=== PATIENT | male | born 1960 | race Caucasian/White ===

== ENCOUNTER 2019-09-11 06:47 | Inpatient (IN) ==
[2019-09-11] MEDS ORDERED: Ethanol\\Acetic Acid\\Na Ace\\Ben 1,000 ML IRRIG.SOLN IR ONE (07:23)
[2019-09-11] MEDS ORDERED: Ondansetron 4 MG/2 ML VIAL IVP ONE (07:35)
[2019-09-11] MEDS ORDERED: *HR* Promethazine 25 MG/ML VIAL IVP PRN (07:35)
[2019-09-11] MEDS ORDERED: Scopolamine Patch 1.5 MG PATCH.TD72 TD ONE (07:35)
[2019-09-11] MEDS ORDERED: *HR* OxyCODONE Immed Rel 5 MG TABLET PO PRN (07:36)
[2019-09-11] MEDS ORDERED: *HR* HYDROmorphone (PF) 1 MG/ML SYRINGE IVP PRN (07:36)
[2019-09-11] MEDS ORDERED: Albuterol 2.5 MG/3 ML NEBULIZER IH ONE (07:39)
[2019-09-11] MEDS ORDERED: CeFAZolin Syr 3,000MG/30 ML 3,000 MG/30 ML SYRINGE IVPB ONE (07:39)
[2019-09-11] MEDS ORDERED: Ringers Solution, Lactated 1,000 ML IVC SCH ×2 (07:45→11:45)
[2019-09-11] MEDS ORDERED: *HR* Midazolam HCl 5 MG/5 ML VIAL IVP ONE ×2 (07:51→07:57)
[2019-09-11] MEDS ORDERED: *HR* Propofol 200 MG/20 ML VIAL IVP ONE (07:57)
[2019-09-11] MEDS ORDERED: *HR* Succinylcholine 200 MG/10 ML VIAL IVP ONE (07:57)
[2019-09-11] MEDS ORDERED: Lidocaine -MPF 2% 2 ML VIAL ONE (07:57)
[2019-09-11] MEDS ORDERED: Lidocaine HCL 4 ML Topical Solution (Laryng-O-Jet Kit Sterile Pak) TP ONE (07:59)
[2019-09-11] MEDS ORDERED: Ropivacaine/PF 0.5% 30 ML VIAL ONE (08:01)
[2019-09-11] MEDS ORDERED: Acetaminophen IV 1,000 MG/100 ML INFUS..BTL ONE (08:01)
[2019-09-11] MEDS ORDERED: *HR* Rocuronium Bromide 50 MG/5 ML VIAL ONE (09:42)
[2019-09-11] MEDS ORDERED: Dexamethasone 4 MG/ML VIAL ONE (09:53)
[2019-09-11] MEDS ORDERED: Ondansetron 4 MG/2 ML VIAL ONE (09:53)
[2019-09-11] MEDS ORDERED: EPHEDrine 50 MG/ML VIAL ONE (10:00)
[2019-09-11] MEDS ORDERED: *HR* PHENYLEPHRINE 1,000 MCG/10 ML SYRINGE IVP ONE (10:05)
[2019-09-11] MEDS ORDERED: Tranexamic Acid 1,000 MG/10 ML VIAL ONE (10:07)
[2019-09-11] MEDS ORDERED: Ondansetron 4 MG/2 ML VIAL IVP PRN (11:36)
[2019-09-11] MEDS ORDERED: Ketorolac 15 MG/ML VIAL IVP PRN (11:36)
[2019-09-11] MEDS ORDERED: *HR* OxyCODONE/APAP 5/325 TABLET PO PRN (11:36)
[2019-09-11] MEDS ORDERED: Temazepam 15 MG CAPSULE PO PRN (11:36)
[2019-09-11] MEDS ORDERED: Sennosides 8.6 MG TABLET PO PRN (11:36)
[2019-09-11] MEDS ORDERED: MOM Conc 10 ML UD.LIQ PO PRN (11:36)
[2019-09-11] MEDS: ceFAZolin sodium 3,000 MG in 0.9 % Sodium Chloride 100 ML IVPB SCH (17:18)
[2019-09-11] MEDS: LINAGLIPTIN PO SCH (22:43)
[2019-09-11] MEDS: METFORMIN HCL PO SCH (22:43)
[2019-09-12] MEDS: ceFAZolin sodium 3,000 MG in 0.9 % Sodium Chloride 100 ML IVPB SCH (00:10)
[2019-09-12 02:17] LABS: Hematocrit 37.6 % (37.5-50.1); Hemoglobin 12.6 g/dL (12.9-16.9)
[2019-09-12 02:34] LABS: BUN/Creatinine Ratio 21 (6-26); Blood Urea Nitrogen 18 mg/dL (8-23); Calcium 8.8 mg/dL (8.6-10.3); Carbon Dioxide 24 mEq/L (23-29); Chloride 104 mEq/L (98-107); Glucose 232 mg/dL (70-105); Osmolality,Calculated 295 (280-300); Sodium 138 mEq/L (136-145); eGFR For African Americans > 60 (> 60); eGFR For Non-African Americans > 60 (> 60)
[2019-09-12 08:02] VITALS: BP 126/74
[2019-09-12] MEDS: METFORMIN HCL PO SCH (08:18)
[2019-09-12] MEDS: LINAGLIPTIN PO SCH (08:18)
[2019-09-12] MEDS ORDERED: Cholecalciferol (D-3) 1,000 UNIT (25MCG) TABLET PO SCH (09:00)
[2019-09-12] MEDS ORDERED: Cyanocobalamin (B-12) 1,000 MCG TABLET PO SCH (09:00)
[2019-09-12] MEDS ORDERED: Vitamin E 200 UNIT (90MG) CAPSULE PO SCH (09:00)
[2019-09-12] MEDS ORDERED: amLODIPine 5 MG TABLET PO SCH (09:00)
[2019-09-12] MEDS ORDERED: Aspirin 81 MG TAB.CHEW PO SCH (09:00)
[2019-09-12] MEDS ORDERED: NON-FORMULARY MEDICATION 1 EACH EACH (Omega-3/Dha/Epa/Fish Oil [Fish Oil 1,000 Mg Softgel] PO SCH (09:00)
[2019-09-12] MEDS ORDERED: (Dapagliflozin Propanediol [Farxiga] 5 MG) PO SCH (09:00)
[2019-09-12] MEDS ORDERED: *HR* Glimepiride 4 MG TABLET PO SCH (09:00)
[2019-09-12] MEDS ORDERED: Fenofibrate 54 MG TABLET PO SCH (09:00)
[2019-09-12] MEDS ORDERED: hydroCHLOROthiazide 25 MG TABLET PO SCH (09:00)
[2019-09-12] MEDS ORDERED: *HR* Enoxaparin 30 MG/0.3 ML SYRINGE SQ SCH (11:37)
[2019-09-15] MEDS ORDERED: (Dulaglutide [Trulicity] 1.5 MG) SQ SCH (16:17)
== END 2019-09-12 12:17 | disposition home or self-care (01) | DRG 483 ==
LOC: SAMDAY 06:47 → 3NENU 12:24
PROVIDERS: ADMIT Orthopaedic Surgery Sports Medicine; ATTEND Orthopaedic Surgery Sports Medicine

== ENCOUNTER 2019-12-29 14:42 | Observation (INO) ==
[2019-12-29] MEDS: DilTIAZem 50 MG in 0.9 % Sodium Chloride 40 ML IVC SCH ×2 (15:21→19:54)
[2019-12-29 15:23] LABS: Basophils # 0.1 K/mcL (0.0-0.2); Basophils % 0.6 %; Eosinophils # 0.1 K/mcL (0.0-0.6); Eosinophils % 1.2 %; Hematocrit 46.4 % (37.5-50.1); Hemoglobin 14.7 g/dL (12.9-16.9); Immature Granulocytes % 0.4 % (0-4); Lymphocytes # 3.8 K/mcL (0.6-4.6); Lymphocytes % 36.9 %; Mean Corpuscular HGB Conc 31.7 g/dL (31.6-35.5); Mean Corpuscular Hemoglobin 26.8 pg (28.0-33.3); Mean Corpuscular Volume 84.7 fL (83.0-100.0); Mean Platelet Volume 10.4 fL (9.4-12.4); Monocytes # 0.8 K/mcL (0.0-1.3); Monocytes % 7.2 %; Neutrophils # 5.6 K/mcL (1.6-8.9); Platelet Count 378 K/mcL (140-400); Red Blood Count 5.48 M/mcL (4.19-5.50); Red Cell Distribution Width 14.1 % (11.5-14.5); Segmented Neutrophils % 53.7 %; White Blood Count 10.4 K/mcL (4.3-11.1)
[2019-12-29] MEDS ORDERED: Mag Hydrox/Al Hydrox/Simeth 30 ML UDC PO PRN (15:51)
[2019-12-29] MEDS ORDERED: Ondansetron 4 MG/2 ML VIAL IVP PRN (15:51)
[2019-12-29] MEDS ORDERED: Acetaminophen 325 MG TABLET PO PRN (15:51)
[2019-12-29] MEDS ORDERED: Naloxone 0.4 MG/ML INJ IVP PRN (15:51)
[2019-12-29] MEDS ORDERED: MOM Conc 10 ML UD.LIQ PO PRN (15:51)
[2019-12-29] MEDS ORDERED: *HR* Promethazine 25 MG/ML VIAL IVP PRN (15:51)
[2019-12-29] MEDS ORDERED: Dextrose Gel 15 GM/37.5 ML TUBE PO PRN ×2 (15:54)
[2019-12-29] MEDS ORDERED: *HR* Dextrose 50 % in Water (Syg) 50 ML SYRINGE IVP PRN (15:54)
[2019-12-29] MEDS ORDERED: D5% in Water 1,000 ML IVC PRN (15:54)
[2019-12-29 15:55] LABS: BUN/Creatinine Ratio 23 (6-26); Blood Urea Nitrogen 19 mg/dL (8-23); Calcium 10.2 mg/dL (8.6-10.3); Carbon Dioxide 26 mEq/L (23-29); Chloride 100 mEq/L (98-107); Glucose 326 mg/dL (70-105); Magnesium 1.6 mg/dL (1.6-2.6); Osmolality,Calculated 297 (280-300); Potassium 4.1 mEq/L (3.5-5.1); Sodium 136 mEq/L (136-145); Thyroid Stimulating Hormone 2.649 mcIU/mL (0.340-5.600); Troponin I < 0.03 ng/mL (< 0.04); eGFR For African Americans > 60 (> 60); eGFR For Non-African Americans > 60 (> 60)
[2019-12-29] MEDS: 0.9 % Sodium Chloride 1,000 ML IVC SCH (18:01)
[2019-12-29] MEDS: Insulin LISPRO 300 UNITS/3 ML VIAL SQ SCH (19:17)
[2019-12-29] MEDS: *HR* Heparin 5,000 UNIT/ML VIAL SQ SCH (19:53)
[2019-12-29] MEDS ORDERED: Insulin LISPRO 300 UNITS/3 ML VIAL SQ SCH (21:00)
[2019-12-30 02:44] LABS: Basophils # 0.1 K/mcL (0.0-0.2); Basophils % 0.6 %; Eosinophils # 0.2 K/mcL (0.0-0.6); Eosinophils % 2.2 %; Hematocrit 42.1 % (37.5-50.1); Immature Granulocytes % 0.2 % (0-4); Lymphocytes # 3.6 K/mcL (0.6-4.6); Lymphocytes % 44.9 %; Mean Corpuscular HGB Conc 30.9 g/dL (31.6-35.5); Mean Corpuscular Hemoglobin 26.5 pg (28.0-33.3); Mean Corpuscular Volume 85.9 fL (83.0-100.0); Mean Platelet Volume 10.8 fL (9.4-12.4); Monocytes # 0.6 K/mcL (0.0-1.3); Monocytes % 7.6 %; Neutrophils # 3.6 K/mcL (1.6-8.9); Platelet Count 328 K/mcL (140-400); Red Cell Distribution Width 14.4 % (11.5-14.5); Segmented Neutrophils % 44.5 %; White Blood Count 8.1 K/mcL (4.3-11.1)
[2019-12-30 03:08] LABS: BUN/Creatinine Ratio 26 (6-26); Blood Urea Nitrogen 19 mg/dL (8-23); Calcium 9.2 mg/dL (8.6-10.3); Carbon Dioxide 27 mEq/L (23-29); Chloride 101 mEq/L (98-107); Chol/HDL Ratio 10.8 (0-4.9); Glucose 266 mg/dL (70-105); Osmolality,Calculated 296 (280-300); Potassium 3.8 mEq/L (3.5-5.1); Sodium 137 mEq/L (136-145); eGFR For African Americans > 60 (> 60); eGFR For Non-African Americans > 60 (> 60)
[2019-12-30] MEDS: *HR* Heparin 5,000 UNIT/ML VIAL SQ SCH (04:31)
[2019-12-30] MEDS: 0.9 % Sodium Chloride 1,000 ML IVC SCH (04:32)
[2019-12-30] MEDS: DilTIAZem 50 MG in 0.9 % Sodium Chloride 40 ML IVC SCH (04:32)
[2019-12-30 07:14] VITALS: BP 118/69
[2019-12-30] MEDS: Insulin LISPRO 300 UNITS/3 ML VIAL SQ SCH ×2 (07:36→13:21)
[2019-12-30 08:01] LABS: Estimated Average Glucose 252 mg/dl
[2019-12-30] MEDS ORDERED: Perflutren Lipid Microsphere 1.3 ML in 0.9 % Sodium Chloride 8.7 ML IVP ONE (08:12)
[2019-12-30] MEDS ORDERED: DilTIAZem CD (24hr) 120 MG CAP.ER.24H PO SCH (09:00)
== END 2019-12-30 13:59 | disposition home or self-care (01) ==
LOC: 2NENU 14:42 → EMEROOARM 14:42 → SUATTDRO 16:02 → 2NENU 16:08
PROVIDERS: ADMIT Internal Medicine; ATTEND Internal Medicine

== ENCOUNTER 2020-01-13 06:11 | Inpatient (IN) ==
[2020-01-13] MEDS ORDERED: Ringers Solution, Lactated 1,000 ML IVC SCH (06:45)
[2020-01-13] MEDS ORDERED: *HR* Midazolam HCl 2 MG/2 ML VIAL ONE (06:54)
[2020-01-13] MEDS ORDERED: *HR* FentaNYL (PF) 100 MCG/2 ML VIAL ONE ×2 (06:54→07:32)
[2020-01-13] MEDS ORDERED: Lidocaine -MPF 2% 2 ML VIAL ONE (06:55)
[2020-01-13] MEDS ORDERED: Dexamethasone 4 MG/ML VIAL ONE (06:55)
[2020-01-13] MEDS ORDERED: *HR* Succinylcholine 200 MG/10 ML VIAL IVP ONE (06:55)
[2020-01-13] MEDS ORDERED: Lidocaine HCL 4 ML Topical Solution (Laryng-O-Jet Kit Sterile Pak) TP ONE (06:55)
[2020-01-13] MEDS ORDERED: *HR* Propofol 200 MG/20 ML VIAL IVP ONE (06:55)
[2020-01-13] MEDS ORDERED: Ondansetron 4 MG/2 ML VIAL ONE (06:55)
[2020-01-13] MEDS ORDERED: *HR* Vasopressin 20 UNIT/ML VIAL ONE (07:09)
[2020-01-13] MEDS ORDERED: Ethanol\\Acetic Acid\\Na Ace\\Ben 1,000 ML IRRIG.SOLN IR ONE ×2 (07:13→09:10)
[2020-01-13] MEDS ORDERED: *HR* Promethazine 25 MG/ML VIAL IVP PRN (07:43)
[2020-01-13] MEDS ORDERED: Acetaminophen IV 1,000 MG/100 ML INFUS..BTL IVPB ONE (07:43)
[2020-01-13] MEDS ORDERED: *HR* HYDROmorphone 2 MG TABLET PO PRN (07:43)
[2020-01-13] MEDS ORDERED: Pregabalin 75 MG CAPSULE PO ONE (07:43)
[2020-01-13] MEDS ORDERED: Famotidine 20 MG/2 ML VIAL IVP ONE (07:43)
[2020-01-13] MEDS ORDERED: *HR* Labetalol 20 MG/4 ML SYRINGE IVP PRN (07:43)
[2020-01-13] MEDS ORDERED: EPHEDrine 50 MG/ML VIAL ONE (08:19)
[2020-01-13] MEDS ORDERED: *HR* Rocuronium Bromide 50 MG/5 ML VIAL ONE (08:20)
[2020-01-13] MEDS ORDERED: *HR* PHENYLEPHRINE 1,000 MCG/10 ML SYRINGE IVP ONE (08:24)
[2020-01-13] MEDS ORDERED: Ketorolac 30 MG/ML VIAL ONE (09:30)
[2020-01-13] MEDS: *HR* HYDROmorphone (PF) 1 MG/ML SYRINGE IVP PRN ×2 (10:09→10:19)
[2020-01-13 10:22] LABS: Hematocrit 36.6 % (37.5-50.1); Hemoglobin 11.3 g/dL (12.9-16.9)
[2020-01-13] MEDS ORDERED: *HR* Dextrose 50 % in Water (Syg) 50 ML SYRINGE IVP PRN (11:18)
[2020-01-13] MEDS ORDERED: Dextrose Gel 15 GM/37.5 ML TUBE PO PRN ×2 (11:18)
[2020-01-13] MEDS ORDERED: NON-FORMULARY MEDICATION 1 EACH EACH (Omega-3/Dha/Epa/Fish Oil [Fish Oil 1,000 Mg Softgel] PO SCH (11:18)
[2020-01-13] MEDS ORDERED: Ondansetron 4 MG/2 ML VIAL IVP PRN (11:18)
[2020-01-13] MEDS ORDERED: D5% in Water 1,000 ML IVC PRN (11:18)
[2020-01-13] MEDS ORDERED: MOM Conc 10 ML UD.LIQ PO PRN (11:18)
[2020-01-13] MEDS ORDERED: *HR* Glimepiride 4 MG TABLET PO SCH (11:18)
[2020-01-13] MEDS ORDERED: Naloxone 0.4 MG/ML INJ IVP PRN (11:18)
[2020-01-13] MEDS ORDERED: Sennosides 8.6 MG TABLET PO PRN (11:18)
[2020-01-13] MEDS ORDERED: NON-FORMULARY MEDICATION 1 EACH EACH (Losartan Potassium [Cozaar] 100 MG) PO SCH (11:18)
[2020-01-13] MEDS: Insulin LISPRO 300 UNITS/3 ML VIAL SQ SCH ×4 (12:29→16:49)
[2020-01-13] MEDS: Fenofibrate 54 MG TABLET PO SCH (12:47)
[2020-01-13] MEDS: Cholecalciferol (D-3) 1,000 UNIT (25MCG) TABLET PO SCH (12:47)
[2020-01-13] MEDS: DilTIAZem CD (24hr) 120 MG CAP.ER.24H PO SCH (12:47)
[2020-01-13] MEDS: Cyanocobalamin (B-12) 1,000 MCG TABLET PO SCH (12:47)
[2020-01-13 12:48] LABS: BUN/Creatinine Ratio 22 (6-26); Blood Urea Nitrogen 19 mg/dL (8-23); Calcium 9.1 mg/dL (8.6-10.3); Carbon Dioxide 26 mEq/L (23-29); Chloride 103 mEq/L (98-107); Glucose 340 mg/dL (70-105); Osmolality,Calculated 300 (280-300); Potassium 4.6 mEq/L (3.5-5.1); Sodium 137 mEq/L (136-145); eGFR For African Americans > 60 (> 60); eGFR For Non-African Americans > 60 (> 60)
[2020-01-13 13:04] LABS: Alanine Aminotransferase 15 Units/L (7-52); Albumin/Globulin Ratio 1.6 (1.1-2.2); Alkaline Phosphatase 67 Units/L (34-104); Aspartate Amino Transferase 15 Units/L (13-39); Bilirubin,Direct 0.1 mg/dL (0.0-0.2); Bilirubin,Indirect 0.3 mg/dL (0.0-1.0); Bilirubin,Total 0.4 mg/dL (0.3-1.0); Globulin 2.5 g/dL (2.4-3.5); Total Protein 6.5 g/dL (6.4-8.9)
[2020-01-13] MEDS: Aspirin 81 MG TAB.CHEW PO SCH (14:11)
[2020-01-13] MEDS: Ringers Solution, Lactated 1,000 ML IVC SCH (14:36)
[2020-01-13] MEDS: Vitamin E 200 UNIT (90MG) CAPSULE PO SCH (14:36)
[2020-01-13] MEDS: *HR* HYDROcodone/Acet 5/325 mg TABLET PO PRN ×2 (14:44→20:49)
[2020-01-13] MEDS: ceFAZolin 2,000 MG in 0.9 % Sodium Chloride 100 ML IVPB SCH ×2 (16:41→23:41)
[2020-01-13] MEDS: *HR* Rivaroxaban 10 MG TABLET PO SCH (16:42)
[2020-01-13] MEDS: *HR* HYDROcodone/Acet 10/325 mg TABLET PO PRN (16:42)
[2020-01-13] MEDS: Insulin DETEMIR 100 UNIT/ML X5UNITS SQ SCH (16:43)
[2020-01-13] MEDS ORDERED: Insulin LISPRO 300 UNITS/3 ML VIAL SQ SCH (21:00)
[2020-01-13] MEDS ORDERED: Insulin DETEMIR 100 UNIT/ML X5UNITS SQ SCH (21:00)
[2020-01-14] MEDS: *HR* HYDROcodone/Acet 5/325 mg TABLET PO PRN ×2 (01:31→09:15)
[2020-01-14] MEDS: Ringers Solution, Lactated 1,000 ML IVC SCH ×2 (04:47→20:09)
[2020-01-14 04:57] LABS: Hematocrit 34.5 % (37.5-50.1); Hemoglobin 10.8 g/dL (12.9-16.9)
[2020-01-14 05:16] LABS: BUN/Creatinine Ratio 18 (6-26); Blood Urea Nitrogen 17 mg/dL (8-23); Calcium 9.2 mg/dL (8.6-10.3); Carbon Dioxide 29 mEq/L (23-29); Chloride 100 mEq/L (98-107); Glucose 284 mg/dL (70-105); Osmolality,Calculated 292 (280-300); Potassium 4.5 mEq/L (3.5-5.1); Sodium 135 mEq/L (136-145); eGFR For African Americans > 60 (> 60); eGFR For Non-African Americans > 60 (> 60)
[2020-01-14] MEDS: Cyanocobalamin (B-12) 1,000 MCG TABLET PO SCH (09:16)
[2020-01-14] MEDS: DilTIAZem CD (24hr) 120 MG CAP.ER.24H PO SCH (09:16)
[2020-01-14] MEDS: Fenofibrate 54 MG TABLET PO SCH (09:16)
[2020-01-14] MEDS: hydroCHLOROthiazide 25 MG TABLET PO SCH (09:17)
[2020-01-14] MEDS: Insulin LISPRO 300 UNITS/3 ML VIAL SQ SCH ×6 (09:17→17:03)
[2020-01-14] MEDS: Aspirin 81 MG TAB.CHEW PO SCH (09:17)
[2020-01-14] MEDS: Vitamin E 200 UNIT (90MG) CAPSULE PO SCH (09:19)
[2020-01-14] MEDS: Cholecalciferol (D-3) 1,000 UNIT (25MCG) TABLET PO SCH (09:19)
[2020-01-14] MEDS: Insulin DETEMIR 100 UNIT/ML X5UNITS SQ SCH ×2 (09:34→20:48)
[2020-01-14] MEDS: *HR* Rivaroxaban 10 MG TABLET PO SCH (17:07)
[2020-01-14] MEDS: *HR* HYDROcodone/Acet 10/325 mg TABLET PO PRN ×2 (17:45→23:51)
[2020-01-15 02:01] LABS: Hematocrit 32.9 % (37.5-50.1); Hemoglobin 10.4 g/dL (12.9-16.9)
[2020-01-15 02:23] LABS: BUN/Creatinine Ratio 19 (6-26); Blood Urea Nitrogen 18 mg/dL (8-23); Calcium 9.1 mg/dL (8.6-10.3); Carbon Dioxide 32 mEq/L (23-29); Chloride 101 mEq/L (98-107); Glucose 179 mg/dL (70-105); Osmolality,Calculated 294 (280-300); Potassium 3.9 mEq/L (3.5-5.1); Sodium 139 mEq/L (136-145); eGFR For African Americans > 60 (> 60); eGFR For Non-African Americans > 60 (> 60)
[2020-01-15] MEDS: Ringers Solution, Lactated 1,000 ML IVC SCH ×2 (05:05→19:52)
[2020-01-15] MEDS: *HR* HYDROcodone/Acet 5/325 mg TABLET PO PRN (05:53)
[2020-01-15] MEDS: Insulin LISPRO 300 UNITS/3 ML VIAL SQ SCH ×6 (08:04→17:16)
[2020-01-15] MEDS: Cyanocobalamin (B-12) 1,000 MCG TABLET PO SCH (08:07)
[2020-01-15] MEDS: Vitamin E 200 UNIT (90MG) CAPSULE PO SCH (08:07)
[2020-01-15] MEDS: DilTIAZem CD (24hr) 120 MG CAP.ER.24H PO SCH (08:07)
[2020-01-15] MEDS: hydroCHLOROthiazide 25 MG TABLET PO SCH (08:08)
[2020-01-15] MEDS: Cholecalciferol (D-3) 1,000 UNIT (25MCG) TABLET PO SCH (08:08)
[2020-01-15] MEDS: Fenofibrate 54 MG TABLET PO SCH (08:08)
[2020-01-15] MEDS: Aspirin 81 MG TAB.CHEW PO SCH (08:09)
[2020-01-15] MEDS: Insulin DETEMIR 100 UNIT/ML X5UNITS SQ SCH ×2 (08:16→19:53)
[2020-01-15] MEDS: *HR* HYDROcodone/Acet 10/325 mg TABLET PO PRN ×2 (13:17→19:53)
[2020-01-15] MEDS ORDERED: Lidocaine -MPF 1% 5 ML AMPUL INFILT ONE (13:48)
[2020-01-15] MEDS ORDERED: cefTRIAXone 2,000 MG in 0.9 % Sodium Chloride Mini Bag 100 ML IVPB SCH (14:00)
[2020-01-15 15:04] LABS: Basophils # 0.1 K/mcL (0.0-0.2); Basophils % 0.7 %; Eosinophils # 0.2 K/mcL (0.0-0.6); Eosinophils % 2.2 %; Hematocrit 33.7 % (37.5-50.1); Hemoglobin 10.7 g/dL (12.9-16.9); Immature Granulocytes % 0.3 % (0-4); Lymphocytes # 2.8 K/mcL (0.6-4.6); Lymphocytes % 38.6 %; Mean Corpuscular HGB Conc 31.8 g/dL (31.6-35.5); Mean Corpuscular Hemoglobin 27.1 pg (28.0-33.3); Mean Corpuscular Volume 85.3 fL (83.0-100.0); Mean Platelet Volume 10.5 fL (9.4-12.4); Monocytes # 0.7 K/mcL (0.0-1.3); Monocytes % 9.4 %; Neutrophils # 3.5 K/mcL (1.6-8.9); Platelet Count 277 K/mcL (140-400); Red Blood Count 3.95 M/mcL (4.19-5.50); Red Cell Distribution Width 14.6 % (11.5-14.5); Segmented Neutrophils % 48.8 %; White Blood Count 7.1 K/mcL (4.3-11.1)
[2020-01-15] MEDS: *HR* Rivaroxaban 10 MG TABLET PO SCH (16:55)
[2020-01-16] MEDS: *HR* HYDROcodone/Acet 5/325 mg TABLET PO PRN (01:46)
[2020-01-16 04:57] LABS: Hematocrit 33.2 % (37.5-50.1); Hemoglobin 10.4 g/dL (12.9-16.9)
[2020-01-16] MEDS: Ringers Solution, Lactated 1,000 ML IVC SCH (05:59)
[2020-01-16 06:52] VITALS: BP 143/81
[2020-01-16] MEDS: DilTIAZem CD (24hr) 120 MG CAP.ER.24H PO SCH (08:17)
[2020-01-16] MEDS: hydroCHLOROthiazide 25 MG TABLET PO SCH (08:17)
[2020-01-16] MEDS: Fenofibrate 54 MG TABLET PO SCH (08:17)
[2020-01-16] MEDS: Aspirin 81 MG TAB.CHEW PO SCH (08:17)
[2020-01-16] MEDS: Cyanocobalamin (B-12) 1,000 MCG TABLET PO SCH (08:18)
[2020-01-16] MEDS: Vitamin E 200 UNIT (90MG) CAPSULE PO SCH (08:18)
[2020-01-16] MEDS: Insulin DETEMIR 100 UNIT/ML X5UNITS SQ SCH (08:18)
[2020-01-16] MEDS: Cholecalciferol (D-3) 1,000 UNIT (25MCG) TABLET PO SCH (08:18)
[2020-01-16] MEDS: Insulin LISPRO 300 UNITS/3 ML VIAL SQ SCH ×4 (08:27→12:30)
[2020-01-16] MEDS ORDERED: Aminoglycoside Consult 1 EACH MC ONE (15:19)
== END 2020-01-16 15:20 | disposition home health service (06) | DRG 483 ==
LOC: SAMDAY 06:11 → 3NENU 11:12
PROVIDERS: ADMIT Orthopaedic Surgery; ATTEND Orthopaedic Surgery

== ENCOUNTER 2020-02-22 05:34 | Observation (INO) ==
[2020-02-22] MEDS ORDERED: Aspirin 81 MG TAB.CHEW PO ONE (05:54)
[2020-02-22] MEDS ORDERED: Nitroglycerin 0.4 MG TAB.SUBL SL PRN (05:54)
[2020-02-22] MEDS ORDERED: Isovue-370 500 ML BOTTLE IVP ONE (05:54)
[2020-02-22 06:28] LABS: Hematocrit 45.2 % (37.5-50.1); Hemoglobin 13.8 g/dL (12.9-16.9); Immature Granulocytes % 0.1 % (0-4); Mean Corpuscular HGB Conc 30.5 g/dL (31.6-35.5); Mean Corpuscular Hemoglobin 26.6 pg (28.0-33.3); Mean Corpuscular Volume 87.1 fL (83.0-100.0); Mean Platelet Volume 10.8 fL (9.4-12.4); Platelet Count 320 K/mcL (140-400); Red Blood Count 5.19 M/mcL (4.19-5.50); Red Cell Distribution Width 14.4 % (11.5-14.5); Segmented Neutrophils % 53.3 %; White Blood Count 7.5 K/mcL (4.3-11.1)
[2020-02-22 06:29] LABS: Basophils # 0.1 K/mcL (0.0-0.2); Basophils % 1.1 %; Eosinophils # 0.2 K/mcL (0.0-0.6); Eosinophils % 2.4 %; Lymphocytes # 2.5 K/mcL (0.6-4.6); Monocytes # 0.7 K/mcL (0.0-1.3); Monocytes % 9.1 %
[2020-02-22 06:50] LABS: BUN/Creatinine Ratio 21 (6-26); Blood Urea Nitrogen 20 mg/dL (8-23); Calcium 9.5 mg/dL (8.6-10.3); Carbon Dioxide 24 mEq/L (23-29); Chloride 103 mEq/L (98-107); Glucose 287 mg/dL (70-105); Osmolality,Calculated 299 (280-300); Potassium 4.2 mEq/L (3.5-5.1); Sodium 138 mEq/L (136-145); Troponin I < 0.03 ng/mL (< 0.04); eGFR For African Americans > 60 (> 60); eGFR For Non-African Americans > 60 (> 60)
[2020-02-22] MEDS ORDERED: Naloxone 0.4 MG/ML INJ IVP PRN (09:27)
[2020-02-22] MEDS ORDERED: Furosemide 20 MG TABLET PO ONE (10:45)
[2020-02-22] MEDS: cefTRIAXone 2,000 MG in 0.9 % Sodium Chloride Mini Bag 100 ML IVPB SCH (13:47)
[2020-02-22] MEDS: DilTIAZem CD (24hr) 120 MG CAP.ER.24H PO SCH (13:47)
[2020-02-22] MEDS: Cholecalciferol (D-3) 1,000 UNIT (25MCG) TABLET PO SCH (17:09)
[2020-02-22] MEDS ORDERED: *HR* Dextrose 50 % in Water (Syg) 50 ML SYRINGE IVP PRN (18:50)
[2020-02-22] MEDS ORDERED: D5% in Water 1,000 ML IVC PRN (18:50)
[2020-02-22] MEDS ORDERED: Dextrose Gel 15 GM/37.5 ML TUBE PO PRN ×2 (18:50)
[2020-02-22] MEDS: Insulin DETEMIR 100 UNIT/ML X5UNITS SQ SCH (20:22)
[2020-02-23 02:44] LABS: Basophils # 0.1 K/mcL (0.0-0.2); Basophils % 1.2 %; Eosinophils # 0.3 K/mcL (0.0-0.6); Eosinophils % 5.4 %; Hematocrit 41.6 % (37.5-50.1); Hemoglobin 12.5 g/dL (12.9-16.9); Lymphocytes # 2.4 K/mcL (0.6-4.6); Lymphocytes % 46.8 %; Mean Corpuscular Hemoglobin 26.4 pg (28.0-33.3); Mean Corpuscular Volume 87.9 fL (83.0-100.0); Mean Platelet Volume 10.8 fL (9.4-12.4); Monocytes # 0.5 K/mcL (0.0-1.3); Monocytes % 10.3 %; Neutrophils # 1.9 K/mcL (1.6-8.9); Platelet Count 272 K/mcL (140-400); Red Blood Count 4.73 M/mcL (4.19-5.50); Red Cell Distribution Width 14.4 % (11.5-14.5); Segmented Neutrophils % 36.3 %; White Blood Count 5.2 K/mcL (4.3-11.1)
[2020-02-23 03:02] LABS: BUN/Creatinine Ratio 22 (6-26); Blood Urea Nitrogen 18 mg/dL (8-23); Carbon Dioxide 29 mEq/L (23-29); Chloride 104 mEq/L (98-107); Glucose 150 mg/dL (70-105); Osmolality,Calculated 295 (280-300); Potassium 4.2 mEq/L (3.5-5.1); Sodium 140 mEq/L (136-145); eGFR For African Americans > 60 (> 60); eGFR For Non-African Americans > 60 (> 60)
[2020-02-23] MEDS: Fenofibrate 54 MG TABLET PO SCH (08:43)
[2020-02-23] MEDS: Cyanocobalamin (B-12) 1,000 MCG TABLET PO SCH (08:43)
[2020-02-23] MEDS: DilTIAZem CD (24hr) 120 MG CAP.ER.24H PO SCH (08:44)
[2020-02-23] MEDS: Aspirin 81 MG TAB.CHEW PO SCH (08:44)
[2020-02-23] MEDS: Insulin LISPRO 300 UNITS/3 ML VIAL SQ SCH ×3 (08:50→16:14)
[2020-02-23] MEDS: cefTRIAXone 2,000 MG in 0.9 % Sodium Chloride Mini Bag 100 ML IVPB SCH (09:07)
[2020-02-23 09:14] LABS: Troponin I < 0.03 ng/mL (< 0.04)
[2020-02-23] MEDS ORDERED: Isosorbide MONOnitrate (24 HR) 30 MG TAB.ER.24H PO SCH (10:30)
[2020-02-23] MEDS ORDERED: *HR* Rivaroxaban 10 MG TABLET PO SCH (17:00)
[2020-02-23] MEDS: Cholecalciferol (D-3) 1,000 UNIT (25MCG) TABLET PO SCH (17:12)
[2020-02-23] MEDS: Insulin DETEMIR 100 UNIT/ML X5UNITS SQ SCH (20:13)
[2020-02-24 05:53] LABS: BUN/Creatinine Ratio 19 (6-26); Blood Urea Nitrogen 15 mg/dL (8-23); Calcium 8.8 mg/dL (8.6-10.3); Carbon Dioxide 30 mEq/L (23-29); Chloride 105 mEq/L (98-107); Glucose 161 mg/dL (70-105); Magnesium 1.8 mg/dL (1.6-2.6); Osmolality,Calculated 294 (280-300); Potassium 4.4 mEq/L (3.5-5.1); Sodium 140 mEq/L (136-145); eGFR For African Americans > 60 (> 60); eGFR For Non-African Americans > 60 (> 60)
[2020-02-24] MEDS: Insulin LISPRO 300 UNITS/3 ML VIAL SQ SCH ×2 (08:28→12:45)
[2020-02-24] MEDS ORDERED: Regadenoson 0.4 MG/5 ML SYRINGE IVP ONE (09:01)
[2020-02-24 11:45] VITALS: BP 135/67
[2020-02-24] MEDS: Aspirin 81 MG TAB.CHEW PO SCH (12:44)
[2020-02-24] MEDS: DilTIAZem CD (24hr) 120 MG CAP.ER.24H PO SCH (12:44)
[2020-02-24] MEDS: cefTRIAXone 2,000 MG in 0.9 % Sodium Chloride Mini Bag 100 ML IVPB SCH (12:44)
[2020-02-24] MEDS: Cyanocobalamin (B-12) 1,000 MCG TABLET PO SCH (12:44)
[2020-02-24] MEDS: Fenofibrate 54 MG TABLET PO SCH (12:44)
[2020-02-24] MEDS ORDERED: Aminoglycoside Consult 1 EACH MC ONE (14:09)
== END 2020-02-24 14:10 | disposition home or self-care (01) ==
LOC: 3BNU 05:34 → EMEROOARM 05:34 → SUATTDRO 09:02 → 3BNU 09:35
PROVIDERS: ADMIT Internal Medicine; ATTEND Internal Medicine

== ENCOUNTER 2020-04-03 23:59 | Observation (INO) ==
[2020-04-04 00:40] LABS: Basophils # 0.1 K/mcL (0.0-0.2); Basophils % 0.7 %; Eosinophils # 0.2 K/mcL (0.0-0.6); Eosinophils % 3.3 %; Hematocrit 42.3 % (37.5-50.1); Hemoglobin 13.3 g/dL (12.9-16.9); Immature Granulocytes % 0.1 % (0-4); Lymphocytes # 3.2 K/mcL (0.6-4.6); Lymphocytes % 47.3 %; Mean Corpuscular HGB Conc 31.4 g/dL (31.6-35.5); Mean Corpuscular Hemoglobin 26.8 pg (28.0-33.3); Mean Corpuscular Volume 85.3 fL (83.0-100.0); Mean Platelet Volume 10.2 fL (9.4-12.4); Monocytes # 0.7 K/mcL (0.0-1.3); Monocytes % 9.9 %; Neutrophils # 2.6 K/mcL (1.6-8.9); Platelet Count 244 K/mcL (140-400); Red Blood Count 4.96 M/mcL (4.19-5.50); Red Cell Distribution Width 14.5 % (11.5-14.5); Segmented Neutrophils % 38.7 %; White Blood Count 6.7 K/mcL (4.3-11.1)
[2020-04-04] MEDS: DilTIAZem 50 MG/50 ML IV.SOLN IVC SCH ×6 (00:40→13:43)
[2020-04-04 00:43] LABS: INR 1.2; Prothrombin Time 13.5 Seconds (9.4-12.1)
[2020-04-04 00:46] LABS: Activated Partial Thrombo Time 41.2 Seconds (26.0-36.0)
[2020-04-04 01:04] LABS: BUN/Creatinine Ratio 19 (6-26); Blood Urea Nitrogen 25 mg/dL (8-23); Calcium 9.7 mg/dL (8.6-10.3); Carbon Dioxide 24 mEq/L (23-29); Chloride 107 mEq/L (98-107); Glucose 126 mg/dL (70-105); Osmolality,Calculated 298 (280-300); Potassium 3.6 mEq/L (3.5-5.1); Sodium 141 mEq/L (136-145); Troponin I < 0.03 ng/mL (< 0.04); eGFR For African Americans > 60 (> 60); eGFR For Non-African Americans 56 (> 60)
[2020-04-04] MEDS ORDERED: 0.9 % Sodium Chloride 1,000 ML IVC STA (01:13)
[2020-04-04 01:15] LABS: Thyroid Stimulating Hormone 7.159 mcIU/mL (0.340-5.600)
[2020-04-04] MEDS ORDERED: Naloxone 0.4 MG/ML INJ IVP PRN ×2 (01:27→01:41)
[2020-04-04] MEDS ORDERED: Ondansetron 4 MG/2 ML VIAL IVP PRN (01:41)
[2020-04-04] MEDS ORDERED: Acetaminophen 325 MG TABLET PO PRN (01:41)
[2020-04-04] MEDS ORDERED: Dextrose Gel 15 GM/37.5 ML TUBE PO PRN ×2 (01:47)
[2020-04-04] MEDS ORDERED: *HR* Dextrose 50 % in Water (Vial) 50 ML VIAL IVP PRN (01:47)
[2020-04-04] MEDS ORDERED: D5% in Water 1,000 ML IVC PRN (01:47)
[2020-04-04 01:50] LABS: Triiodothyronine (T3) Free 3.29 pg/mL (2.50-3.90)
[2020-04-04 04:02] LABS: Hematocrit 41.6 % (37.5-50.1); Hemoglobin 12.6 g/dL (12.9-16.9); Mean Corpuscular HGB Conc 30.3 g/dL (31.6-35.5); Mean Corpuscular Volume 85.8 fL (83.0-100.0); Mean Platelet Volume 11.1 fL (9.4-12.4); Platelet Count 242 K/mcL (140-400); Red Blood Count 4.85 M/mcL (4.19-5.50); Red Cell Distribution Width 14.5 % (11.5-14.5); White Blood Count 6.6 K/mcL (4.3-11.1)
[2020-04-04 04:23] LABS: BUN/Creatinine Ratio 23 (6-26); Blood Urea Nitrogen 26 mg/dL (8-23); Calcium 9.2 mg/dL (8.6-10.3); Carbon Dioxide 24 mEq/L (23-29); Chloride 105 mEq/L (98-107); Glucose 157 mg/dL (70-105); Osmolality,Calculated 298 (280-300); Potassium 3.3 mEq/L (3.5-5.1); Sodium 140 mEq/L (136-145); eGFR For African Americans > 60 (> 60); eGFR For Non-African Americans > 60 (> 60)
[2020-04-04] MEDS ORDERED: Magnesium Sulfate 1 GM/102 ML PIGGYBACK IVPB ONE (07:34)
[2020-04-04] MEDS: Isosorbide MONOnitrate (24 HR) 30 MG TAB.ER.24H PO SCH (08:21)
[2020-04-04] MEDS: Aspirin 81 MG TAB.CHEW PO SCH (08:21)
[2020-04-04] MEDS: DilTIAZem CD (24hr) 240 MG CAP.ER.24H PO SCH (08:21)
[2020-04-04] MEDS: Insulin LISPRO 300 UNITS/3 ML VIAL SQ SCH ×3 (08:25→17:16)
[2020-04-04] MEDS ORDERED: DilTIAZem CD (24hr) 120 MG CAP.ER.24H PO SCH (09:00)
[2020-04-04] MEDS ORDERED: hydroCHLOROthiazide 25 MG TABLET PO SCH (09:00)
[2020-04-04] MEDS ORDERED: *HR* Digoxin 0.5 MG/2 ML AMPUL IVP ONE (13:37)
[2020-04-04] MEDS: Furosemide 20 MG/2 ML VIAL IVP SCH ×2 (13:43→21:52)
[2020-04-04] MEDS ORDERED: Amiodarone Premix 150 MG/100 ML BAG IVPB ONE ×2 (15:04)
[2020-04-04] MEDS ORDERED: 0.9 % Sodium Chloride 250 ML IVC ONE (15:06)
[2020-04-04] MEDS ORDERED: 0.9 % Sodium Chloride 500 ML ONE (15:07)
[2020-04-04] MEDS ORDERED: Amiodarone Premix 360 MG/200 ML BAG IVC ONE (15:31)
[2020-04-04] MEDS ORDERED: Metoprolol XL (24 HR) Succ 25 MG TAB.ER.24H PO ONE (18:04)
[2020-04-04] MEDS ORDERED: Insulin LISPRO 300 UNITS/3 ML VIAL SQ SCH (21:00)
[2020-04-04] MEDS ORDERED: *HR* Rivaroxaban 10 MG TABLET PO SCH (21:00)
[2020-04-04] MEDS ORDERED: Amiodarone Premix 360 MG/200 ML BAG IVC SCH (21:30)
[2020-04-05 08:30] LABS: BUN/Creatinine Ratio 25 (6-26); Blood Urea Nitrogen 25 mg/dL (8-23); Calcium 8.9 mg/dL (8.6-10.3); Carbon Dioxide 29 mEq/L (23-29); Chloride 106 mEq/L (98-107); Glucose 194 mg/dL (70-105); Osmolality,Calculated 302 (280-300); Sodium 141 mEq/L (136-145); eGFR For African Americans > 60 (> 60); eGFR For Non-African Americans > 60 (> 60)
[2020-04-05] MEDS: Aspirin 81 MG TAB.CHEW PO SCH (08:33)
[2020-04-05] MEDS: Furosemide 20 MG/2 ML VIAL IVP SCH (08:34)
[2020-04-05] MEDS: DilTIAZem CD (24hr) 240 MG CAP.ER.24H PO SCH (08:34)
[2020-04-05] MEDS: Isosorbide MONOnitrate (24 HR) 30 MG TAB.ER.24H PO SCH (08:34)
[2020-04-05] MEDS: Insulin LISPRO 300 UNITS/3 ML VIAL SQ SCH (08:42)
[2020-04-05 09:24] VITALS: BP 108/58
[2020-04-06] MEDS ORDERED: DilTIAZem CD (24hr) 120 MG CAP.ER.24H PO SCH (09:00)
== END 2020-04-05 11:54 | disposition home or self-care (01) ==
LOC: 2NNU 23:59 → EMEROOARM 23:59 → SUATTDRO 04-04 01:39 → 2NNU 04-04 02:10
PROVIDERS: ADMIT Internal Medicine; ATTEND Internal Medicine

== ENCOUNTER 2020-07-03 13:59 | Inpatient (IN) ==
[~2020-07-03 13:59] MED LIST: Acetaminophen IV 1,000 MG/100 ML INFUS..BTL IVPB ONE
[2020-07-03] MEDS ORDERED: CeFAZolin Syr 3,000MG/30 ML 3,000 MG/30 ML SYRINGE IVPB ONE (14:21)
[2020-07-03] MEDS ORDERED: Ringers Solution, Lactated 1,000 ML IVC SCH ×2 (14:30→19:09)
[2020-07-03] MEDS ORDERED: *HR* Meperidine 25 MG/ML SYRINGE IVP PRN (14:38)
[2020-07-03] MEDS ORDERED: *HR* Promethazine 25 MG/ML VIAL IVP PRN ×2 (14:38→20:41)
[2020-07-03] MEDS ORDERED: Ondansetron 4 MG/2 ML VIAL IVP PRN ×2 (14:38→19:09)
[2020-07-03] MEDS ORDERED: *HR* Propofol 200 MG/20 ML VIAL IVP ONE ×2 (14:50→16:28)
[2020-07-03] MEDS ORDERED: *HR* FentaNYL (PF) 100 MCG/2 ML VIAL ONE ×2 (14:50→16:51)
[2020-07-03] MEDS ORDERED: Lidocaine -MPF 2% 2 ML VIAL ONE (14:51)
[2020-07-03] MEDS ORDERED: Dexamethasone 4 MG/ML VIAL ONE (14:51)
[2020-07-03] MEDS ORDERED: *HR* Rocuronium Bromide 50 MG/5 ML VIAL ONE (14:51)
[2020-07-03] MEDS ORDERED: *HR* Succinylcholine 200 MG/10 ML VIAL IVP ONE (14:51)
[2020-07-03] MEDS ORDERED: *HR* Midazolam HCl 2 MG/2 ML VIAL ONE (14:51)
[2020-07-03] MEDS ORDERED: Ondansetron 4 MG/2 ML VIAL ONE ×2 (14:51→19:18)
[2020-07-03] MEDS ORDERED: Lidocaine HCL 4 ML Topical Solution (Laryng-O-Jet Kit Sterile Pak) TP ONE (14:52)
[2020-07-03] MEDS ORDERED: Ropivacaine/PF 0.5% 30 ML VIAL ONE (15:55)
[2020-07-03] MEDS ORDERED: ROPIVACAINE/PF/NS 0.25% 1 EACH SYRINGE INTRAART ONE (15:55)
[2020-07-03] MEDS ORDERED: Ethanol\\Acetic Acid\\Na Ace\\Ben 1,000 ML IRRIG.SOLN IR ONE (16:02)
[2020-07-03] MEDS ORDERED: Vancomycin 1,000 MG VIAL ONE (16:03)
[2020-07-03] MEDS ORDERED: EPHEDrine 50 MG/ML VIAL ONE (17:07)
[2020-07-03] MEDS: *HR* HYDROmorphone PF 0.5 MG/0.5 ML SYRINGE IVP PRN ×4 (17:54→18:27)
[2020-07-03 18:41] LABS: Hematocrit 39.5 % (37.5-50.1); Hemoglobin 12.1 g/dL (12.9-16.9)
[2020-07-03] MEDS ORDERED: *HR* Dextrose 50 % in Water (Vial) 50 ML VIAL IVP PRN (19:09)
[2020-07-03] MEDS ORDERED: Dextrose Gel 15 GM/37.5 ML TUBE PO PRN ×2 (19:09)
[2020-07-03] MEDS ORDERED: *HR* HYDROcodone/Acet 5/325 mg TABLET PO PRN (19:09)
[2020-07-03] MEDS ORDERED: MOM Conc 10 ML UD.LIQ PO PRN (19:09)
[2020-07-03] MEDS ORDERED: Nitroglycerin 0.4 MG TAB.SUBL SL PRN (19:09)
[2020-07-03] MEDS ORDERED: Naloxone 0.4 MG/ML INJ IVP PRN (19:09)
[2020-07-03] MEDS ORDERED: REPATHA 140 MG SQ SCH (19:09)
[2020-07-03] MEDS ORDERED: *HR* HYDROcodone/Acet 10/325 mg TABLET PO PRN (19:09)
[2020-07-03] MEDS ORDERED: NON-FORMULARY MEDICATION 1 EACH EACH (Tadalafil [Cialis] 20 MG) PO PRN (19:09)
[2020-07-03] MEDS ORDERED: Sennosides 8.6 MG TABLET PO PRN (19:09)
[2020-07-03] MEDS ORDERED: D5% in Water 1,000 ML IVC PRN (19:09)
[2020-07-03] MEDS ORDERED: Ringers Solution, Lactated 1,000 ML ONE (19:28)
[2020-07-03] MEDS: LINAGLIPTIN PO SCH (20:21)
[2020-07-03] MEDS: (Icosapent Ethyl [Vascepa] 2 GM) PO SCH (20:21)
[2020-07-03] MEDS: METFORMIN HCL PO SCH (20:21)
[2020-07-03] MEDS: Insulin LISPRO 300 UNITS/3 ML VIAL SQ SCH (20:43)
[2020-07-03] MEDS ORDERED: Insulin DETEMIR 100 UNIT/ML X5UNITS SQ SCH (21:00)
[2020-07-03] MEDS ORDERED: Insulin LISPRO 300 UNITS/3 ML VIAL SQ SCH (21:00)
[2020-07-03] MEDS ORDERED: Fenofibrate 54 MG TABLET PO SCH (21:00)
[2020-07-03] MEDS ORDERED: *HR* Rivaroxaban 10 MG TABLET PO SCH (21:00)
[2020-07-04] MEDS: ceFAZolin 3,000 MG in 0.9 % Sodium Chloride 100 ML IVPB SCH ×2 (00:35→08:42)
[2020-07-04] MEDS: Insulin LISPRO 300 UNITS/3 ML VIAL SQ SCH (08:44)
[2020-07-04] MEDS: (Icosapent Ethyl [Vascepa] 2 GM) PO SCH (08:50)
[2020-07-04] MEDS: METFORMIN HCL PO SCH (08:50)
[2020-07-04] MEDS: LINAGLIPTIN PO SCH (08:50)
[2020-07-04] MEDS ORDERED: *HR* Glimepiride 4 MG TABLET PO SCH (09:00)
[2020-07-04] MEDS ORDERED: Cyanocobalamin (B-12) 1,000 MCG TABLET PO SCH (09:00)
[2020-07-04] MEDS ORDERED: Losartan/HCTZ 50-12.5 TABLET PO SCH (09:00)
[2020-07-04] MEDS ORDERED: (Dapagliflozin Propanediol [Farxiga] 10 MG) PO SCH (09:00)
[2020-07-04] MEDS ORDERED: Metoprolol XL (24 HR) Succ 50 MG TAB.ER.24H PO SCH (09:00)
[2020-07-04] MEDS ORDERED: Vitamin E 200 UNIT (90MG) CAPSULE PO SCH (09:00)
[2020-07-04] MEDS ORDERED: Aspirin Enteric Coated 81 MG Tablet PO SCH (09:00)
[2020-07-04 10:48] LABS: Hematocrit 36.9 % (37.5-50.1); Hemoglobin 11.2 g/dL (12.9-16.9)
[2020-07-04 11:01] VITALS: BP 114/64
[2020-07-04 11:07] LABS: BUN/Creatinine Ratio 24 (6-26); Blood Urea Nitrogen 23 mg/dL (8-23); Calcium 8.7 mg/dL (8.6-10.3); Carbon Dioxide 24 mEq/L (23-29); Chloride 104 mEq/L (98-107); Glucose 254 mg/dL (70-105); Osmolality,Calculated 296 (280-300); Sodium 137 mEq/L (136-145); eGFR For African Americans > 60 (> 60); eGFR For Non-African Americans > 60 (> 60)
[2020-07-05] MEDS ORDERED: (Dulaglutide [Trulicity] 1.5 MG) SQ SCH (14:28)
== END 2020-07-04 14:09 | disposition home or self-care (01) | DRG 483 ==
LOC: SAMDAY 13:59 → 3NENU 17:39
PROVIDERS: ADMIT Orthopaedic Surgery; ATTEND Orthopaedic Surgery